=== PATIENT | female | born 1960 | race Caucasian/White ===

== ENCOUNTER 2018-12-11 10:01 | Day surgery (SDC) | payer BC ==
[~2018-12-11] VITALS: Ht 165.1 cm; Wt 81.6 kg
[~2018-12-11 10:01] MED LIST: NO MEDS.
[2018-12-11 10:27] VITALS: Ht 165.1 cm; Wt 81.6 kg
[2018-12-11 10:46] VITALS: BP 127/73; PULSE 75; RESP 18
[2018-12-11] MEDS ORDERED: MIDAZOLAM 1 MG/ML 2 ML INJ ONE ×2 (11:18)
[2018-12-11] MEDS ORDERED: FENTAnyl 50 MCG/ML VIAL ONE (11:19)
[2018-12-11 11:29] VITALS: BP 107/61; RESP 16
== END 2018-12-11 11:38 | disposition home or self-care (01) ==
LOC: GIL 10:01
PROVIDERS: ATTEND Internal Medicine Gastroenterology
DX: Z12.11 Encounter for screening for malignant neoplasm of colon (principal); K64.4 Residual hemorrhoidal skin tags
CPT/HCPCS: 45378; J2250; J3010; Z7610